=== PATIENT | female | born 1970 | race African-American/Black ===

== ENCOUNTER 2017-10-11 18:12 | Observation (INO) | payer BC ==
[2017-10-11 19:16] LABS: Absolute Lymphocytes (CBC) 2.3 K/uL (0.7-4.9); Absolute Monocytes 0.6 K/uL (0.1-1.3); Basophils % 0.4 % (0-1.3); Eosinophils % 1.3 % (0-4.4); Hematocrit 30.4 % (36.0-45.0); Lymphocytes % 22.5 % (15.3-44.8); MCH 22.6 pg (27.0-35.0); MCV 71.8 fL (80-100); MPV 7.7 fL (7.6-11.3); Monocytes % 5.8 % (3.3-12.3); RBC Red Blood Cell Count 4.23 M/uL (3.86-4.86)
[2017-10-11 19:30] LABS: Protime INR 1.03
--- NOTE | 2017-10-11 19:33 | RAD REPORT ---
EXAM DESCRIPTION: CT - Chest For Pe Angio - 10/11/2017 7:17 pm CLINICAL HISTORY: Chest pain. SOB COMPARISON: No comparisons TECHNIQUE: CT angiogram of the pulmonary arteries was performed with MIP. All CT scans are performed using dose optimization technique as appropriate and may include automated exposure control or mA/KV adjustment according to patient size. FINDINGS: Filling defects are noted within the segmental branches of the pulmonary arterial tree jake aterally, greatest in the right lower lobe branch. Small filling defects also seen in upper lobe bran ches. The findings are compatible with acute pulmonary thromboembolism. No RV strain pattern seen. No acute aortic finding demonstrated. Aberrant right subclavian artery noted, normal variant. The lungs are clear. No significant pericardial or pleural fluid. No concerning bony finding. IMPRESSION: Positive for acute pulmonary thromboembolism bilateral segmental branches. Findings were discussed with ER physician Dr. Munoz 7:30 p.m. 10/11/2017 by telephone.
[2017-10-11 19:56] LABS: ALT/SGPT 18 U/L (12-78); AST/SGOT 15 U/L (15-37); Albumin 3.5 g/dL (3.4-5.0); Alkaline Phosphatase 81 U/L (45-117); BUN Blood Urea Nitrogen 13 mg/dL (7-18); Bicarbonate 25 mmol/L (21-32); Bilirubin Direct < 0.1 mg/dL (0-0.2); Bilirubin Total 0.4 mg/dL (0.2-1.0); CKMB Creatine Kinase MB < 1.0 ng/mL (0.3-3.6); Creatine Phosphokinase 54 U/L (26-192); Glucose Level 196 mg/dL (74-106); NT PRO-BNP 105 pg/mL (<125); Potassium 3.5 mmol/L (3.5-5.1); Protein, Total 8.2 g/dL (6.4-8.2); Sodium Level 136 mmol/L (136-145)
[2017-10-11] MEDS ORDERED: ENOXAPARIN 100 MG/ML SYR SQ ONE (20:04)
--- NOTE | 2017-10-11 20:08 | ER ---
Nurse's Notes [facility] Name: Laurel Noe Age: 46 yrs Sex: Female : 1970 Arrival Date: 10/11/2017 Time: 18:15 Bed 4 Private MD: Yosvany Chung Diagnosis: Pulmonary embolism Presentation: 10/11 18:22 Presenting complaint: Patient states: She had some labs and a chest X-Ray done here aj1 earlier, because she has been having shortness of breath for the past week. Dr Chung's office called her and told her to come to the ER immediately because she might have a blood clot. D-dimer was 2265 on outpatient labs . Patient was placed in a wheelchair and instructed not to get up for any reason. Transition of care: patient was not received from another setting of care. Onset of symptoms was October 04, 2017. Risk Assessment: Do you want to hurt yourself or someone else? Patient reports no desire to harm self or others. Initial Sepsis Screen: Does the patient meet any 2 criteria? No. Patient's initial sepsis screen is negative. Does the patient have a suspected source of infection? No. Patient's initial sepsis screen is negative. Care prior to arrival: None. 18:22 Method Of Arrival: Ambulatory aj1 18:22 Acuity: CLARISSE 2 aj1 Triage Assessment: 18:24 General: Appears in no apparent distress. comfortable, Behavior is calm, cooperative, aj1 appropriate for age. Pain: Denies pain. Neuro: Level of Consciousness is awake, alert, obeys commands, Speech is normal. Cardiovascular: Patient's skin is warm and dry. Respiratory: Reports shortness of breath Airway is patent Respiratory effort is even, unlabored, Respiratory pattern is regular, symmetrical. Derm: Skin is pink, warm \T\ dry. normal. 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 - Social history:: Smoking status: Patient/guardian denies using tobacco. - Ebola Screening: : Patient denies travel to an Ebola-affected area in the 21 days before illness onset. Screenin:05 Abuse screen: Denies threats or abuse. Denies injuries from another. Nutritional hb screening: No deficits noted. Tuberculosis screening: No symptoms or risk factors identified. Fall Risk None identified. Assessment: 18:55 General: Appears in no apparent distress. Behavior is calm, cooperative. Pain: Denies hb pain. Neuro: Level of Consciousness is awake, alert, obeys commands, Oriented to person, place, time, situation. Cardiovascular: Capillary refill < 3 seconds Patient's skin is warm and dry. Respiratory: Airway is patent Trachea midline Respiratory effort is even, unlabored, Respiratory pattern is regular, symmetrical, Breath sounds are clear bilaterally. GI: No signs and/or symptoms were reported involving the gastrointestinal system. : No signs and/or symptoms were reported regarding the genitourinary system. EENT: No signs and/or symptoms were reported regarding the EENT system. Derm: No signs and/or symptoms reported regarding the dermatologic system. Musculoskeletal: No signs and/or symptoms reported regarding the musculoskeletal system. 19:10 General: I reviewed and agree with previous assessment. tl2 20:30 Reassessment: Patient appears in no apparent distress at this time. Patient and/or tl2 family updated on plan of care and expected duration. Pain level reassessed. Patient is alert, oriented x 3, equal unlabored respirations, skin warm/dry/pink. 22:00 Reassessment: Patient appears in no apparent distress at this time. Patient and/or tl2 family updated on plan of care and expected duration. Pain level reassessed. Patient is alert, oriented x 3, equal unlabored respirations, skin warm/dry/pink. 22:30 Reassessment: Patient appears in no apparent distress at this time. Patient and/or tl2 family updated on plan of care and expected duration. Pain level reassessed. Patient is alert, oriented x 3, equal unlabored respirations, skin warm/dry/pink. Pt stable and ready for transport to floor. Vital Signs: 18:24 BP 156 / 90; Pulse 103; Resp 20; Temp 98.0(TE); Pulse Ox 99% on R/A; Weight 158.3 kg aj1 (R); Height 5 ft. 8 in. (172.72 cm) (R); Pain 0/10; 20:06 BP 120 / 71; Pulse 88; Resp 18; Pulse Ox 99% on R/A; Pain 0/10; tl1 20:37 BP 133 / 76; Pulse 90; Resp 17; Pulse Ox 97% on R/A; Pain 0/10; tl1 21:59 BP 123 / 74; Pulse 92; Resp 18; Pulse Ox 98% on R/A; tl2 18:24 Body Mass Index 53.06 (158.30 kg, 172.72 cm) aj1 ED Course: 18:15 Patient arrived in ED. mr 18:15 Yosvany Chung MD is Private Physician. mr 18:23 Triage completed. aj1 18:24 Arm band placed on Patient placed in an exam room. aj1 18:36 Jim Jon NP is PHCP. pm1 18:36 Remi Carvalho MD is Attending Physician. pm1 18:40 Patient has correct armband on for positive identification. Placed in gown. Bed in low hb position. Call light in reach. Side rails up X 1. 18:48 Radiology exam delayed due to IV insertion attempt and/or patient not having nj appropriate IV at this time. 18:58 Inserted saline lock: 18 gauge in left antecubital area, using aseptic technique. Blood sm4 collected. 19:17 CT Chest For PE Angio In Process Unspecified. EDMS 19:17 CT completed. Patient tolerated procedure well. Patient moved back from CT. vr 20:06 Jenny Magana MD is Hospitalizing Provider. pm1 22:57 No provider procedures requiring assistance completed. Patient admitted, IV remains in tl2 place. Administered Medications: 19:58 Not Given (Physician Discretion): Heparin (DVT/PE- Bolus per protocol) - HEParin 80 pm1 units/kg IVP once; Max 8,000 units 19:58 Not Given (Physician Discretion): Heparin (DVT/PE Drip) 18 units/kg/hr - (HEParin 71264 pm1 units, D5W 500 ml) IV at calculated rate Per protocol; Max initial rate 1800 units/hr 20:08 Drug: Lovenox 1 mg/kg Route: Sub-Q; Site: right lower abdomen; tl2 23:17 Follow up: Response: No adverse reaction tl2 22:45 Drug: Lovenox 60 mg Route: Sub-Q; Site: left lower abdomen; tl2 23:17 Follow up: Response: No adverse reaction tl2 Outcome: 20:07 Decision to Hospitalize by Provider. pm1 23:00 Admitted to Tele accompanied by tech, via stretcher, room 214, with chart, Report tl2 called to Tyrell 23:00 Condition: stable 23:00 Discharge instructions given to patient, Instructed on the need for admit. 23:18 Patient left the ED. tl2 Signatures: Dispatcher [employer] EDMS Eliza Chávez, RN RN aj1 Loan Eid mr Hackett, Ena Hodges RN RN tl1 Jim Jon, ESTIMATOR ESTIMATOR pm1 Evelyn Mazariegos RN RN hb Knox, Taylor, RN RN tl2 Bertram Middleton Sean RN RN sm4 Corrections: (The following items were deleted from the chart) 18:48 18:47 Radiology exam delayed due to lab results not completed at this time. kelsey (BUN/Creatinine) kelsey
--- NOTE | 2017-10-11 20:08 | EDPHYS ---
Physician Documentation [facility] Name: Laurel Noe Age: 46 yrs Sex: Female : 1970 Arrival Date: 10/11/2017 Time: 18:15 Bed 4 Private MD: Yosvany Chung ED Physician Remi Carvalho HPI: 10/11 19:00 This 46 yrs old Black Female presents to ER via Ambulatory with complaints of Shortness pm1 of breath. 19:00 The patient has shortness of breath with light activity. Onset: The symptoms/episode pm1 began/occurred 1 week(s) ago. Duration: The symptoms With exertion, walking short distance. The patient's shortness of breath is aggravated by exertion, light activity, walking, is alleviated by rest. Associated signs and symptoms: Pertinent negatives: chest pain, non-productive cough, productive cough, diaphoresis, fever, nausea, vomiting, lower extremity swelling. Severity of symptoms: in the emergency department the symptoms are unchanged. The patient has not experienced similar symptoms in the past. The patient has been recently seen by a physician: the patient's primary care provider, Dr Chung saw the patient today and ordered bmp, d-dimer and chest x-ray. D-dimer elevated and instructed patient to report to the ER for evaluation. 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 - Social history:: Smoking status: Patient/guardian denies using tobacco. - Ebola Screening: : Patient denies travel to an Ebola-affected area in the 21 days before illness onset. ROS: 19:00 Constitutional: Negative for fever, chills, and weight loss, Eyes: Negative for injury, pm1 pain, redness, and discharge, ENT: Negative for injury, pain, and discharge, Neck: Negative for injury, pain, and swelling, Cardiovascular: Negative for chest pain, palpitations, and edema. 19:00 Abdomen/GI: Negative for abdominal pain, nausea, vomiting, diarrhea, and constipation, Back: Negative for injury and pain, : Negative for injury, bleeding, discharge, and swelling, MS/Extremity: Negative for injury and deformity, Skin: Negative for injury, rash, and discoloration, Neuro: Negative for headache, weakness, numbness, tingling, and seizure. 19:00 Respiratory: Positive for shortness of breath, Negative for cough, sputum production, wheezing. Exam: 19:00 Constitutional: This is a well developed, well nourished patient who is awake, alert, pm1 and in no acute distress. Head/Face: Normocephalic, atraumatic. Eyes: Pupils equal round and reactive to light, extra-ocular motions intact. Lids and lashes normal. Conjunctiva and sclera are non-icteric and not injected. Cornea within normal limits. Periorbital areas with no swelling, redness, or edema. ENT: Nares patent. No nasal discharge, no septal abnormalities noted. Tympanic membranes are normal and external auditory canals are clear. Oropharynx with no redness, swelling, or masses, exudates, or evidence of obstruction, uvula midline. Mucous membranes moist. Neck: Trachea midline, no thyromegaly or masses palpated, and no cervical lymphadenopathy. Supple, full range of motion without nuchal rigidity, or vertebral point tenderness. No Meningismus. Chest/axilla: Normal chest wall appearance and motion. Nontender with no deformity. No lesions are appreciated. Cardiovascular: Regular rate and rhythm with a normal S1 and S2. No gallops, murmurs, or rubs. Normal PMI, no JVD. No pulse deficits. Respiratory: Lungs have equal breath sounds bilaterally, clear to auscultation and percussion. No rales, rhonchi or wheezes noted. No increased work of breathing, no retractions or nasal flaring. Back: No spinal tenderness. No costovertebral tenderness. Full range of motion. Skin: Warm, dry with normal turgor. Normal color with no rashes, no lesions, and no evidence of cellulitis. MS/ Extremity: Pulses equal, no cyanosis. Neurovascular intact. Full, normal range of motion. 19:00 Abdomen/GI: Inspection: abdomen appears normal, obese Bowel sounds: normal, Palpation: abdomen is soft and non-tender. 19:00 Neuro: Orientation: is normal, Motor: moves all fours, Sensation: is normal, no obvious gross deficits. Vital Signs: 18:24 BP 156 / 90; Pulse 103; Resp 20; Temp 98.0(TE); Pulse Ox 99% on R/A; Weight 158.3 kg aj1 (R); Height 5 ft. 8 in. (172.72 cm) (R); Pain 0/10; 20:06 BP 120 / 71; Pulse 88; Resp 18; Pulse Ox 99% on R/A; Pain 0/10; tl1 20:37 BP 133 / 76; Pulse 90; Resp 17; Pulse Ox 97% on R/A; Pain 0/10; tl1 21:59 BP 123 / 74; Pulse 92; Resp 18; Pulse Ox 98% on R/A; tl2 18:24 Body Mass Index 53.06 (158.30 kg, 172.72 cm) aj1 MDM: 18:36 Patient medically screened. pm1 19:44 Data reviewed: vital signs. Data interpreted: Pulse oximetry: on room air is 99 %. pm1 Interpretation: normal. 20:03 Counseling: I had a detailed discussion with the patient and/or guardian regarding: the pm1 historical points, exam findings, and any diagnostic results supporting the discharge/admit diagnosis, radiology results, the need for further work-up and treatment in the hospital. 20:03 Physician consultation: Jenny Magana MD was called at 19:55, was contacted at 20:04, pm1 regarding admission, patient's condition, and will see patient in ED, would like medications started, Lovenox. 10/11 18:43 Order name: Basic Metabolic Panel; Complete Time: 19:57 pm1 10/11 18:43 Order name: CBC with Diff; Complete Time: 19:31 pm1 10/11 18:43 Order name: Ckmb; Complete Time: 19:57 pm1 10/11 18:43 Order name: CPK; Complete Time: 19:57 pm1 10/11 18:43 Order name: LFT's; Complete Time: 19:57 pm1 10/11 18:43 Order name: Magnesium; Complete Time: 19:57 pm1 10/11 18:43 Order name: NT PRO-BNP; Complete Time: 19:57 pm1 10/11 18:43 Order name: PT-INR; Complete Time: 19:38 pm1 10/11 18:43 Order name: Ptt, Activated; Complete Time: 19:38 pm1 10/11 18:43 Order name: Troponin (emerg Dept Use Only); Complete Time: 19:31 pm1 10/11 18:43 Order name: CT Chest For PE Angio; Complete Time: 19:38 pm1 10/11 22:34 Order name: US; Complete Time: 22:37 EDMS 10/11 18:43 Order name: EKG; Complete Time: 18:44 pm1 10/11 18:43 Order name: Cardiac monitoring; Complete Time: 19:10 pm1 10/11 18:43 Order name: IV Saline Lock; Complete Time: 19:10 pm1 10/11 18:43 Order name: Labs collected and sent; Complete Time: 19:10 pm1 10/11 18:43 Order name: O2 Per Protocol; Complete Time: 19:10 pm1 10/11 18:43 Order name: O2 Sat Monitoring; Complete Time: 19:10 pm1 Administered Medications: 19:58 Not Given (Physician Discretion): Heparin (DVT/PE- Bolus per protocol) - HEParin 80 pm1 units/kg IVP once; Max 8,000 units 19:58 Not Given (Physician Discretion): Heparin (DVT/PE Drip) 18 units/kg/hr - (HEParin 62771 pm1 units, D5W 500 ml) IV at calculated rate Per protocol; Max initial rate 1800 units/hr 20:08 Drug: Lovenox 1 mg/kg Route: Sub-Q; Site: right lower abdomen; tl2 23:17 Follow up: Response: No adverse reaction tl2 22:45 Drug: Lovenox 60 mg Route: Sub-Q; Site: left lower abdomen; tl2 23:17 Follow up: Response: No adverse reaction tl2 Disposition: 10/12 15:20 Co-signature as Attending Physician, Remi Carvalho MD I agree with the assessment and kdr plan of care. Disposition: 10/11/17 20:07 Hospitalization ordered by Jenny Magana for Observation. Preliminary diagnosis is Pulmonary embolism. - Bed requested for Telemetry/MedSurg (observation). - Status is Observation. tl2 - Condition is Stable. - Problem is new. - Symptoms have improved. UTI on Admission? No Signatures: Dispatcher [employer] EDEliza Garcia RN RN aj1 Zayda Carrillo RN RN kl Remi Carvalho MD MD [facility] Jim Jon, KORTNEY INSTRUMENT INSTALLER pm1 Rabia Lyons RN RN tl2 Corrections: (The following items were deleted from the chart) 10/11 21:10 20:07 Hospitalization Ordered by Jenny Magana MD for Observation. Preliminary kl diagnosis is Pulmonary embolism. Bed requested for Telemetry/MedSurg (observation). Status is Observation. Condition is Stable. Problem is new. Symptoms have improved. UTI on Admission? No. pm1 21:20 21:10 10/11/2017 20:07 Hospitalization Ordered by Jenny Magana MD for Observation. kl Preliminary diagnosis is Pulmonary embolism. Bed requested for Telemetry/MedSurg (observation). Status is Observation. Condition is Stable. Problem is new. Symptoms have improved. UTI on Admission? No. kl 23:18 21:20 10/11/2017 20:07 Hospitalization Ordered by Jenny Magana MD for Observation. tl2 Preliminary diagnosis is Pulmonary embolism. Bed requested for Telemetry/MedSurg (observation). Status is Observation. Condition is Stable. Problem is new. Symptoms have improved. UTI on Admission? No. kl
[2017-10-11] MEDS ORDERED: ONDANSETRON 4 MG/2 ML VIAL IV PRN (21:44)
--- NOTE | 2017-10-11 21:52 | P.HP ---
Certification for Inpatient Patient admitted to: Observation With expected LOS: <2 Midnights Practitioner: I am a practitioner with admitting privileges, knowledge of patient current condition, hospital course, and medical plan of care. Services: Services provided to patient in accordance with Admission requirements found in Title 42 Section 412.3 of the Code of Federal Regulations Patient History Date of Service: 10/11/17 Reason for admission: bilateral PE History of Present Illness: Mr Noe is a 46 years old woman with history of HTN and DM II, who start about 1 week ago with SOB with minimal activity. She denied chest pain, palpitations, cough or fever. Today she went to see her PCP since her symptoms did not improved. PCP ordered lab work including D-Dimer which was significantly elevated 2265, subsequently the patient was referred to ED for further evaluation to R/O PE. At my encounter the patient was not on respiratory distress. BP 156/90, HR 100's, O2 Sat 99% on RA. CTA chest consistent with bilateral segmental PE. The patient denied recent long trips, she states that is an active woman, denied OCP or smoking. Allergies No Known Allergies Allergy (Unverified 10/11/17 20:46) Home medications list reviewed: Yes - Past Medical/Surgical History -: HTN -: DM II -: - Family History Family History: Reviewed- Non-Contributory - Social History Smoking Status: Never smoker Alcohol use: No Place of Residence: Home Review of Systems 10-point ROS is otherwise unremarkable Physical Examination - Physical Exam General: Alert, In no apparent distress HEENT: Atraumatic, PERRLA, Mucous membr. moist/pink, EOMI, Sclerae nonicteric Neck: Supple, 2+ carotid pulse no bruit, No LAD, Without JVD or thyroid abnormality Respiratory: Clear to auscultation bilaterally, Normal air movement Cardiovascular: Regular rate/rhythm, Normal S1 S2 Gastrointestinal: Normal bowel sounds, No tenderness Musculoskeletal: No tenderness Integumentary: No rashes Neurological: Normal gait, Normal speech, Normal strength at 5/5 x4 extr, Normal tone, Normal affect Lymphatics: No axilla or inguinal lymphadenopathy - Studies Laboratory Data (last 24 hrs) 10/11/17 19:00: PT 12.2, INR 1.03, APTT 24.3 10/11/17 19:00: WBC 10.0, Hgb 9.6 L, Hct 30.4 L, Plt Count 467 H 10/11/17 19:00: Sodium 136, Potassium 3.5, BUN 13, Creatinine 1.10, Glucose 196 H, Magnesium 2.0, Total Bilirubin 0.4, AST 15, ALT 18, Alkaline Phosphatase 81 Assessment and Plan - Problems (Diagnosis) (1) HTN (hypertension) Current Visit: Yes Status: Acute Qualifiers: Hypertension type: essential hypertension Qualified Code(s): I10 - Essential (primary) hypertension (2) Pulmonary embolism Current Visit: Yes Status: Acute Qualifiers: Pulmonary embolism type: other Chronicity: acute Acute cor pulmonale presence: without acute cor pulmonale Qualified Code(s): I26.99 - Other pulmonary embolism without acute cor pulmonale (3) Diabetes mellitus Current Visit: Yes Status: Acute Qualifiers: Diabetes mellitus type: type 2 Diabetes mellitus retirement insulin use: without retirement use Diabetes mellitus complication status: with unspecified complications Qualified Code(s): E11.8 - Type 2 diabetes mellitus with unspecified complications - Advance Directives Does patient have a Living Will: No Does patient have a Durable POA for Healthcare: No - Code Status/Comfort Care Code Status Assessed: Yes Code Status: Full Code
[2017-10-11] MEDS ORDERED: ENOXAPARIN 60 MG/0.6 ML SQ ONE (22:28)
--- NOTE | 2017-10-11 22:33 | RAD REPORT ---
EXAM DESCRIPTION: VAS - Extrem Venous W Compress Andrew - 10/11/2017 10:29 pm CLINICAL HISTORY: PE Bilateral leg edema and swelling. COMPARISON: No comparisons TECHNIQUE: Real-time sonographic interrogation of the left and right lower extremity deep venous sys tems was performed. FINDINGS: Normal compressibility, flow augmentation, phasic flow and spontaneous flow is identified in both the left and right lower extremity deep venous systems. IMPRESSION: No sonographic evidence of left or right lower extremity deep venous thrombosis.
[2017-10-11] MEDS ORDERED: POTASSIUM CL SA 10 MEQ TAB PO ONE (23:16)
[2017-10-11 23:56] LABS: Urine Appearance CLEAR; Urine Bilirubin NEGATIVE (NEG); Urine Blood 1+ (NEG); Urine Color YELLOW; Urine Glucose 3+ (NEG); Urine Microscopic Reflex ORDER UMIC; Urine Protein NEGATIVE (NEG); Urine Specific Gravity >=1.030 (1.005-1.030); Urine pH 5.5 (5.0-7.0)
[2017-10-12 00:04] LABS: Urine Bacteria <20 /HPF (<20); Urine Culture Reflex Order REFLEXED; Urine RBC <5 /HPF (NONE SEEN); Urine Trichomonas PRESENT (NONE SEEN)
[2017-10-12 05:05] LABS: Absolute Lymphocytes (CBC) 3.9 K/uL (0.7-4.9); Absolute Monocytes 0.8 K/uL (0.1-1.3); Absolute Neutrophil 4.8 K/uL (1.8-8.0); Basophils % 1.3 % (0-1.3); Eosinophils % 1.7 % (0-4.4); Hematocrit 28.7 % (36.0-45.0); Lymphocytes % 39.5 % (15.3-44.8); MCH 22.5 pg (27.0-35.0); MCV 70.6 fL (80-100); MPV 7.7 fL (7.6-11.3); Monocytes % 8.3 % (3.3-12.3); RBC Red Blood Cell Count 4.07 M/uL (3.86-4.86)
[2017-10-12 05:24] LABS: BUN Blood Urea Nitrogen 14 mg/dL (7-18); Bicarbonate 27 mmol/L (21-32); Glucose Level 114 mg/dL (74-106); Potassium 3.4 mmol/L (3.5-5.1); Sodium Level 138 mmol/L (136-145)
[2017-10-12] MEDS ORDERED: POTASSIUM 25 MEQ EFFERV TAB PO ONE (06:00)
[2017-10-12] MEDS: INSULIN -REGULAR HUMAN 50 UNIT/0.5 ML ML SQ SCH ×3 (07:30→16:30)
[2017-10-12] MEDS ORDERED: APIXABAN 5 MG TABLET PO SCH (09:00)
[2017-10-12] MEDS ORDERED: metroNIDAZOLE 500 MG TABLET PO ONE (11:29)
[2017-10-12] MEDS ORDERED: POTASSIUM CL SA 10 MEQ TAB PO ONE (12:31)
--- NOTE | 2017-10-12 14:57 | P.SSS ---
Patient History Date of Service: 10/12/17 Primary Care Provider: Dr Chnug Reason for admission: bilateral PE History of Present Illness: See HPI Allergies No Known Allergies Allergy (Verified 10/11/17 23:24) Home Medications: Canagliflozin/Metformin HCl [Invokamet Xr 150-1,000 mg Tab] 2 each PO DAILY 03/19 Losartan/Hydrochlorothiazide [Losartan-Hctz 100-25 mg Tab] 1 each PO DAILY 10/11 Apixaban [Eliquis] 5 mg PO BID #88 tablet 10/12/17 - Past Medical/Surgical History Has patient received pneumonia vaccine in the past: No Diabetic: Yes -: HTN -: DM II -: - Family History Family History: Reviewed- Non-Contributory - Social History Smoking Status: Never smoker Alcohol use: Yes CD- Drugs: No Caffeine use: No Place of Residence: Home Review of Systems General: As per HPI Physical Examination - Vital Signs Temperature: 99.2 F Blood Pressure: 122/73 Pulse: 83 Respirations: 16 Pulse Ox (%): 95 - Physical Exam General: Alert, In no apparent distress HEENT: Atraumatic, PERRLA, Mucous membr. moist/pink, EOMI, Sclerae nonicteric Neck: Supple, 2+ carotid pulse no bruit, No LAD, Without JVD or thyroid abnormality Respiratory: Clear to auscultation bilaterally, Normal air movement Cardiovascular: Regular rate/rhythm, Normal S1 S2 Gastrointestinal: Normal bowel sounds, No tenderness Musculoskeletal: No tenderness Integumentary: No rashes Neurological: Normal gait, Normal speech, Normal strength at 5/5 x4 extr, Normal tone, Normal affect Lymphatics: No axilla or inguinal lymphadenopathy - Studies Laboratory Data (last 24 hrs) 10/11/17 19:00: PT 12.2, INR 1.03, APTT 24.3 10/11/17 19:00: WBC 10.0, Hgb 9.6 L, Hct 30.4 L, Plt Count 467 H 10/11/17 19:00: Sodium 136, Potassium 3.5, BUN 13, Creatinine 1.10, Glucose 196 H, Magnesium 2.0, Total Bilirubin 0.4, AST 15, ALT 18, Alkaline Phosphatase 81 - Diagnosis (Problem(s)) (1) Diabetes mellitus Onset Date: 10/12/17 Current Visit: Yes Status: Acute Qualifiers: Diabetes mellitus type: type 2 Diabetes mellitus senior care insulin use: without senior care use Diabetes mellitus complication status: with unspecified complications Qualified Code(s): E11.8 - Type 2 diabetes mellitus with unspecified complications (2) HTN (hypertension) Onset Date: 10/12/17 Current Visit: Yes Status: Acute Qualifiers: Hypertension type: essential hypertension Qualified Code(s): I10 - Essential (primary) hypertension (3) Pulmonary embolism Onset Date: 10/12/17 Current Visit: Yes Status: Acute Qualifiers: Pulmonary embolism type: other Chronicity: acute Acute cor pulmonale presence: without acute cor pulmonale Qualified Code(s): I26.99 - Other pulmonary embolism without acute cor pulmonale (4) Morbid obesity Current Visit: Yes Status: Acute Treatment Summary: Overall during the hospital stay patient remained stable Patient was initially admitted to the hospital for shortness of breath was found to have pulmonary embolism bilaterally. Was started on Eliquis. Lab work was done to workup for thrombophilia. Patient had marked improvement in his symptoms and thus was discharged home under stable condition patient was asked to continue taking Eliquis daily. Prior authorization was done through the insurance. Patient had factor 5 and cardiolipin lab work done here in the hospital which will be followed up by PCP. Patient was also found to have a Trichomonas infection while here in the hospital and was treated with metronidazole 2 g. Patient was educated that her partner needs to be treated as well. - Disposition Disposition: ROUTINE DISCHARGE Condition: GOOD Patient Discharge Instructions: Please f.u with your PCP in 1 week for workup for thrombophillia given the Pulmonary Embolism. You had Factor V and Cardolipin antibody checked here. lab work is pending and will be f/u by PCP. - You were also found to have Trichomonosis which is STD and was treated with Flagyl 2g one time dose. You will also need to have your partner treated for adequate treatment. -You also were found to have HgA1C of 6.8 while here. New medication. Eliquis 10mg BID for 7 day and after that take 5mg BID Diet: Regular Activity: Ad sandra
--- NOTE | 2017-10-13 10:32 | EKG ---
Test Date: 2017-10-11 Test Time: 19:39:48 Forensic Chemist: NICKI MEASUREMENT RESULTS: Intervals: Rate: 93 RI: 170 QRSD: 94 QT: 388 QTc: 482 [place]: P: 39 RI: 170 QRS: -23 T: 2 INTERPRETIVE STATEMENTS: Normal sinus rhythm Incomplete right bundle branch block Prolonged QT Abnormal ECG No previous ECG available for comparison Electronically Signed On 10-13-17 10:27:46 CDT by Shawn Escobar
== END 2017-10-12 18:19 | disposition home or self-care (01) ==
LOC: ER 18:12 → ERHOLD 21:04 → 2ND 21:36
PROVIDERS: ADMIT Internal Medicine; ATTEND Internal Medicine
DX: I26.99 Other pulmonary embolism without acute cor pulmonale (principal); I10 Essential (primary) hypertension; A59.00 Urogenital trichomoniasis, unspecified; E11.9 Type 2 diabetes mellitus without complications; E66.01 Morbid (severe) obesity due to excess calories; Z68.43 Body mass index [BMI] 50.0-59.9, adult
CPT/HCPCS: 36415; 71275; 80048; 80076; 81003; 81015; 81241; 82550; 82553; 82962; 83036; 83735; 83880; 84132; 84484; 85025; 85610; 85730; 86147; 87086; 87088; 93005; 93970; 94760; 96372; 99285; G0378; J1650; Q9967